=== PATIENT | male | born 1970 | race Caucasian/White ===

== ENCOUNTER 2017-04-13 16:57 | Emergency (ER) | payer SELFPAY ==
[2017-04-13 17:03] VITALS: BP 121/80; PULSE 88; RESP 16; TEMP 98.3; O2SAT 100
--- NOTE | 2017-04-13 17:28 | ED PDOC ---
HPI: Psych/Substance Abuse Time Seen by Provider: 04/13/17 17:09 Chief Complaint (Nursing): Alcohol Ingestion Chief Complaint (Provider): bizarre behavior History Per: EMS Additional Complaint(s): Pt reports he was drinking alcohol today and because he was "jumping around" outside, ambulance called to pick him up. He reports that he is fine except for feeling some withdrawal symptoms because he hasn't done heroin "in a while." Requesting detox but also requesting water and Ensure "for the vitamins" Per Ems pt was being a nuisance which is way services were called Past Medical History Reviewed: Historical Data, Nursing Documentation, Vital Signs Vital Signs: Last Vital Signs Temp 98.3 F 04/13/17 17:01 Pulse 88 04/13/17 17:01 Resp 16 04/13/17 17:01 BP 121/80 04/13/17 17:01 Pulse Ox 100 04/13/17 17:01 - Medical History PMH: Denies: Diabetes, Hepatitis, HIV, HTN, Chronic Kidney Disease, Seizures, Sexually Transmitted Disease Other PMH: Above negative history pulled from previous visits - Family History Family History: States: Unknown Family Hx - Immunization History Hx Tetanus Toxoid Vaccination: No Hx Influenza Vaccination: No Hx Pneumococcal Vaccination: No - Home Medications Home Medications: Ambulatory Orders Medication Instructions Recorded No Known Home Med 06/03/16 - Allergies Allergies/Adverse Reactions: Allergies Allergy/AdvReac Type Severity Reaction Status Date / Time No Known Allergies Allergy Verified 03/31/17 17:55 Review of Systems ROS Statement: Except As Marked, All Systems Reviewed And Found Negative (and as per HPI) Constitutional: Positive for: Chills, Sweats. Negative for: Fever Psych: Positive for: Withdrawal. Negative for: Anxiety, Depression, Psychosis, Suicidal ideation Physical Exam - Reviewed Nursing Documentation Reviewed: Yes Vital Signs Reviewed: Yes - Physical Exam Appears: Positive for: No Acute Distress Head Exam: Positive for: ATRAUMATIC, NORMOCEPHALIC Skin: Positive for: Warm, Diaphoresis ((current outdoor temp 90F)) Eye Exam: Positive for: EOMI, PERRL ENT: Negative for: Pharyngeal Erythema, Tonsillar Exudate Neck: Positive for: Painless ROM, Supple Cardiovascular/Chest: Positive for: Regular Rate, Rhythm, Chest Non Tender. Negative for: Murmur Respiratory: Positive for: Normal Breath Sounds. Negative for: Wheezing, Respiratory Distress Gastrointestinal/Abdominal: Positive for: Bowel Sounds, Soft. Negative for: Tenderness Back: Positive for: Normal Inspection. Negative for: Vertebral Tenderness Extremity: Positive for: Normal ROM. Negative for: Pedal Edema Lymphatic: Negative for: Adenopathy Neurologic/Psych: Positive for: Alert, Oriented (x3), Mood/Affect (mildly anxious). Negative for: Motor/Sensory Deficits - ECG O2 Sat by Pulse Oximetry: 100 Disposition - Clinical Impression Clinical Impression: Opioid abuse, Alcohol abuse with intoxication - Disposition Referrals: [facility] [Outside] [facility] [Outside] Alcoholics Anonymous [Outside] Disposition: Routine/Home Disposition Time: 17:30 Condition: STABLE Instructions: Polysubstance Abuse (ED)
== END 2017-04-13 18:03 | disposition home or self-care (01) ==
LOC: H.ER 16:57
DX: F10.10 Alcohol abuse, uncomplicated (principal)

== ENCOUNTER 2017-05-27 13:53 | Emergency (ER) | payer SELFPAY ==
[2017-05-27 13:57] VITALS: BP 112/72; PULSE 80; RESP 20; TEMP 98; O2SAT 98
--- NOTE | 2017-05-27 14:15 | ED PDOC ---
HPI: Psych/Substance Abuse Time Seen by Provider: 05/27/17 13:56 Chief Complaint (Nursing): Substance Abuse Chief Complaint (Provider): Wandering History Per: Patient History/Exam Limitations: no limitations Onset/Duration Of Symptoms: Hrs Current Symptoms Are (Timing): Still Present Suicide/Self Injury Attempted (Context): None Severity: None Additional Complaint(s): Patient 46 year old male, who has a history of substance abuse, brought in by [facility] due to complaints of wandering in the streets earlier today. Patient was reported to have had abnormal behavior. Patient has no complains and states he just wants to drink water. Patient admits past opiate usage and alcohol consumption earlier today. PMD: none Past Medical History Reviewed: Historical Data, Nursing Documentation, Vital Signs Vital Signs: Last Vital Signs Temp 98 F 05/27/17 13:55 Pulse 80 05/27/17 13:55 Resp 20 05/27/17 13:55 BP 112/72 05/27/17 13:55 Pulse Ox 98 05/27/17 13:55 - Medical History PMH: No Chronic Diseases Denies: Diabetes, Hepatitis, HIV, HTN, Chronic Kidney Disease, Seizures, Sexually Transmitted Disease - Surgical History Surgical History: No Surg Hx - Family History Family History: States: No Known Family Hx - Immunization History Hx Tetanus Toxoid Vaccination: No Hx Influenza Vaccination: No Hx Pneumococcal Vaccination: No - Home Medications Home Medications: Ambulatory Orders Medication Instructions Recorded No Known Home Med 06/03/16 - Allergies Allergies/Adverse Reactions: Allergies Allergy/AdvReac Type Severity Reaction Status Date / Time No Known Allergies Allergy Verified 03/31/17 17:55 Review of Systems ROS Statement: Except As Marked, All Systems Reviewed And Found Negative Constitutional: Negative for: Fever Cardiovascular: Negative for: Chest Pain Physical Exam - Reviewed Nursing Documentation Reviewed: Yes Vital Signs Reviewed: Yes - Physical Exam Appears: Positive for: Well, Non-toxic, No Acute Distress Head Exam: Positive for: ATRAUMATIC, NORMAL INSPECTION, NORMOCEPHALIC Skin: Positive for: Normal Color, Warm, DRY Eye Exam: Positive for: EOMI, Normal appearance, PERRL Neck: Positive for: Normal, Painless ROM Cardiovascular/Chest: Positive for: Regular Rate, Rhythm. Negative for: Gallop , Murmur Respiratory: Positive for: Normal Breath Sounds. Negative for: Accessory Muscle Use, Rhonchi, Respiratory Distress Extremity: Positive for: Normal ROM Neurologic/Psych: Positive for: Alert, Oriented - ECG O2 Sat by Pulse Oximetry: 98 (RA) Pulse Ox Interpretation: Normal Medical Decision Making Medical Decision Making: Time: 14:00 Impression: Poss Substance Abuse Plan: Alcohol Serum Patient shows no signs of alcohol abuse or opiate abuse. Scribe Attestation Documented by Albina Auguste acting as a scribe for Osmar Keene MD. Provider Attestation: All medical record entries made by the Scribe were at my direction and personally dictated by me. I have reviewed the chart and agree that the record accurately reflects my personal performance of the history, physical exam, medical decision making, and the department course for this patient. I have also personally directed, reviewed, and agree with the discharge instructions and disposition. Disposition - Clinical Impression Clinical Impression: Opioid abuse - Patient ED Disposition Is Patient to be Admitted: No Doctor Will See Patient In The: Office Counseled Patient/Family Regarding: Studies Performed, Diagnosis, Need For Followup - Disposition Referrals: [facility] [Outside] Disposition Time: 14:20 Condition: GOOD Additional Instructions: Follow up with your PCP in 2-3 days. Instructions: Narcotic Abuse (ED)
== END 2017-05-27 14:10 | disposition home or self-care (01) ==
LOC: H.ER 13:53
DX: F11.10 Opioid abuse, uncomplicated (principal)

== ENCOUNTER 2017-07-20 22:04 | Emergency (ER) | payer SELFPAY ==
[2017-07-20 22:12] VITALS: BP 113/74; PULSE 69; RESP 17; TEMP 98.8; O2SAT 95
--- NOTE | 2017-07-20 22:31 | ED PDOC ---
HPI: Psych/Substance Abuse Time Seen by Provider: 07/20/17 22:16 Chief Complaint (Nursing): Altered Mental Status History Per: Patient History/Exam Limitations: no limitations Onset/Duration Of Symptoms: Hrs (2) Current Symptoms Are (Timing): Still Present Suicide/Self Injury Attempted (Context): None Modifying Factor(s): Narcotics Severity: Mild Pain Scale Rating Of: 0 Associated Symptoms: denies: Anger, Anxiety, Agitation, Depression, Paranoia, Suicidal Thoughts, Suicidal Plan Involuntary Hold By: None Additional History Per: Patient, EMS Additional Complaint(s): Pt BIBA for being naked in the bathroom in the public establishment. Pt denies any complains. He admit heroine snorting earlier today. No other complains. Past Medical History Reviewed: Historical Data, Nursing Documentation, Vital Signs Vital Signs: Last Vital Signs Temp 98.8 F 07/20/17 22:08 Pulse 69 07/20/17 22:08 Resp 17 07/20/17 22:08 BP 113/74 07/20/17 22:08 Pulse Ox 95 07/20/17 22:08 - Medical History PMH: Denies: Diabetes, Hepatitis, HIV, HTN, Chronic Kidney Disease, Seizures, Sexually Transmitted Disease - Surgical History Surgical History: No Surg Hx - Family History Family History: States: Unknown Family Hx - Immunization History Hx Tetanus Toxoid Vaccination: No Hx Influenza Vaccination: No Hx Pneumococcal Vaccination: No - Home Medications Home Medications: Ambulatory Orders Medication Instructions Recorded No Known Home Med 06/03/16 - Allergies Allergies/Adverse Reactions: Allergies Allergy/AdvReac Type Severity Reaction Status Date / Time No Known Allergies Allergy Verified 07/20/17 22:12 Review of Systems ROS Statement: Except As Marked, All Systems Reviewed And Found Negative Physical Exam - Reviewed Nursing Documentation Reviewed: Yes Vital Signs Reviewed: Yes - Physical Exam Appears: Positive for: Well, Non-toxic, No Acute Distress Head Exam: Positive for: ATRAUMATIC Skin: Positive for: Warm, Dry Eye Exam: Positive for: EOMI, PERRL Neck: Positive for: Painless ROM, Supple Cardiovascular/Chest: Positive for: Regular Rate, Rhythm. Negative for: Tachycardia Respiratory: Positive for: Normal Breath Sounds. Negative for: Wheezing Gastrointestinal/Abdominal: Positive for: Soft. Negative for: Tenderness Extremity: Positive for: Normal ROM Neurologic/Psych: Positive for: Alert, Oriented, Gait (steady) - ECG O2 Sat by Pulse Oximetry: 95 Medical Decision Making Medical Decision Making: Impression Recurrent opioid abuse No acute intoxication. No psychosis. No indications for medical and psychiatric work up. Pt is stable for discharge. Disposition - Clinical Impression Clinical Impression: Opioid abuse - Patient ED Disposition Is Patient to be Admitted: No Doctor Will See Patient In The: Office Counseled Patient/Family Regarding: Studies Performed, Diagnosis, Need For Followup - Disposition Referrals: [facility] [Outside] Disposition: Routine/Home Disposition Time: 22:31 Condition: GOOD Additional Instructions: Follow up with your PCP in 2-3 days. Instructions: Narcotic Abuse (ED)
== END 2017-07-20 22:25 | disposition home or self-care (01) ==
LOC: H.ER 22:04
DX: F11.20 Opioid dependence, uncomplicated (principal)